=== PATIENT | female | born 1970 | race Caucasian/White ===

== ENCOUNTER 2021-12-13 19:20 | Emergency (ER) | payer OTHER, MEDICAID ==
[~2021-12-13] VITALS: Ht 165.1 cm; Wt 68.0 kg
[2021-12-13 19:21] VITALS: BP 170/100
--- NOTE | 2021-12-13 19:46 | NUR ---
Dr. Nathan at [facility] to exam patient,.
[2021-12-13 19:58] LABS: BASOPHILS # (AUTO) 0.1 K/uL (0.00-0.22); BASOPHILS % (AUTO) 0.6 % (0.0-2.0); HEMATOCRIT 37.7 % (36-48); LYMPHOCYTES % (AUTO) 9.4 % (20.5-51.1); MEAN CORPUSCULAR HEMOGLOBIN 26 pg (27-31); MEAN CORPUSCULAR HGB CONC 32 g/dL (33-37); MEAN CORPUSCULAR VOLUME 81.5 fL (80-94); MONOCYTES # (AUTO) 0.8 K/uL (0.8-1.0); MONOCYTES % (AUTO) 7.4 % (1.7-9.3); NEUTROPHILS # (AUTO) 9.2 K/uL (1.8-7.7); NEUTROPHILS % (AUTO) 82.6 % (42.2-75.2); PLATELET COUNT (AUTO) 257 K/uL (140-450); RED BLOOD CELL COUNT(AUTO) 4.62 MIL/uL (4.20-5.40); RED CELL DISTRIBUTION WIDTH 16.1 % (11.6-13.7); WHITE BLOOD COUNT (AUTO) 11.1 K/uL (4.8-10.8)
[2021-12-13 20:22] LABS: ALBUMIN 3.9 g/dL (3.4-5.0); ASPARTATE AMINOTRANSFERASE 36 U/L (15-37); CARBON DIOXIDE 21.9 mmol/L (21-32); CHLORIDE 102 mmol/L (98-107); GFR ARICAN-AMERICAN 75 mL/min (>90); GLUCOSE 116 mg/dL (74-106); SODIUM SERUM 138 mmol/L (136-145); TOTAL BILIRUBIN 0.6 mg/dL (0.0-1.0); UREA NITROGEN, BLOOD 12 mg/dL (7-18)
[2021-12-13 20:29] LABS: ACETAMINOPHEN < 0.5 ug/ml (10-30); POTASSIUM 2.9 mmol/L (3.5-5.1)
--- NOTE | 2021-12-13 20:29 | NUR ---
critical result received from lab Potassium 2.9
--- NOTE | 2021-12-13 20:32 | NUR ---
ed informed of critical result.
[2021-12-13] MEDS ORDERED: POTASSIUM CHLORIDE 10 MEQ TABER PO ONE (20:55)
--- NOTE | 2021-12-13 21:30 | NUR ---
Assumed patient care, from [facility] to room 7. Received reprot from paramedics, patient on 5150 hold for DTO. On assesment patient is hyperverbal, poor hygiene, fecal matter noted on her pants. Patient walked to rest room, cleaned and gowned up. Instructed to save urine specimen for ua and utox. Urine HCg done with negative result. Patient noted to be having abrasions on the right finger and left shoulder.
--- NOTE | 2021-12-13 21:40 | NUR ---
Dr. Raphael psychiatrist contact center director with patient on tele monitor, pt assesed and decided to keep 5150 hold.
--- NOTE | 2021-12-13 21:45 | NUR ---
ATTEMPT TO COMPLETE AN EKG. PT REQUESTED FOR A FEMALE STAFF MEMBER. PRIMARY NURSE MADE AWARE.
[2021-12-13] MEDS ORDERED: HALOPERIDOL 5 MG TAB PO SCH (22:00)
[2021-12-13 23:20] LABS: BARBITURATE, URINE NEGATIVE ng/ml (NEG <=200); BENZODIAZEPINE, URINE NEGATIVE ng/mL (NEG <=200); CANNABINOID, URINE POSITIVE ng/mL (NEG <=50); COCAINE, URINE NEGATIVE ng/mL (NEG <=300); OPIATE, URINE NEGATIVE ng/mL (NEG <=2000); PHENCYCLIDINE SCREEN,URINE NEGATIVE ng/mL (NEG <=25)
[2021-12-13] MEDS ORDERED: BACITRACIN OINT 500 UNITS/GM PKT TP ONE ×2 (23:26→23:30)
--- NOTE | 2021-12-14 | NUR ---
during inventory, noted tazer, screw bulk truck driver and kitchen knives inside the pt's purse. Knives and tazer taken out of patient's purse and trashed. Pt requesting to keep the screw bulk truck driver inside her purse, purse handed to security.
--- NOTE | 2021-12-14 | NUR ---
Patient awake at this time, snacks served. Encouraged sleep, vital signs checked and stable.
--- NOTE | 2021-12-14 01:17 | NUR ---
inventory of belongings done, with Clint HUERTA as the witness. All items sent to security for safe keeping.
--- NOTE | 2021-12-14 02:30 | NUR ---
Patient pacing, talking to herself, requesting for her black phone to be thrown in the trash, Dr. Finch called to bedside for possible medication to pacify patient's restlessness.
--- NOTE | 2021-12-14 02:48 | NUR ---
patient awake, refused to take her haldol PO medication. RN inline of sight.
--- NOTE | 2021-12-14 06:00 | NUR ---
Patient now asleep, RN in line of sight. Awaiting for urine sample for urinalysis.
--- NOTE | 2021-12-14 07:28 | NUR ---
hand-off to Nicole MICHAELS for continuity of care.
--- NOTE | 2021-12-14 07:28 | NUR ---
REPORT RECEIVED FROM BRANDO BARNES FOR TRANSFER OF CARE
--- NOTE | 2021-12-14 07:40 | NUR ---
Patient now asleep, RN in line of sight. NAD NOTED. EQUAL CHEST RISE AND FALL NOTED. WILL CONTINUE TO MONITOR
--- NOTE | 2021-12-14 08:40 | NUR ---
PT RAN TO RESTROOM AND LOCKED DOOR. INFORMED PATIENT DOOR CANNOT BE LOCKED. PT PHYSICALLY ATTACKED MYSELF AND RAN TO HER ROOM POOPING ALL OF THE FLOOR. PT IN ROOM 7 YELLING "GET ME OUT OF HERE." PATIENT BIT AND ATTACKED CHARGE NURSE. PT RESTRAINED TO FLOOR AT THIS TIME FOR SAFETY. PATIENT CONTINUES TO BECOME AGGRESSIVE AND ATTACK STAFF. AIDEN NOLASCO CALLED. PT PLACED INTO BED AND MEDICATED. PT IS SPITTING AT STAFF. PT MOVED TO BED 6 AND IN LINE FOR RN
[2021-12-14] MEDS ORDERED: diphenhydrAMINE 50 MG/ML VIAL ONE (08:52)
[2021-12-14] MEDS ORDERED: HALOPERIDOL IM 5 MG/ML VIAL ONE (08:52)
[2021-12-14] MEDS ORDERED: LORazepam 2 MG/ML VIAL ONE (08:53)
--- NOTE | 2021-12-14 09:07 | NUR ---
PT MOVED FROM FROM BED 7 TO BED 6
--- NOTE | 2021-12-14 10:05 | NUR ---
PT IN BED 6, VISIBLE EQUAL RISE AND FALL OF CHEST, VSS, WILL CONTINUE TO MONITOR.
[2021-12-14] MEDS ORDERED: diphenhydrAMINE 50 MG/ML VIAL IM ONE (11:20)
[2021-12-14] MEDS ORDERED: HALOPERIDOL IM 5 MG/ML VIAL IM ONE ×2 (11:20→12:05)
[2021-12-14] MEDS ORDERED: LORazepam 2 MG/ML VIAL IM ONE (11:20)
--- NOTE | 2021-12-14 11:24 | NUR ---
Packet faxed to: [facility]
--- NOTE | 2021-12-14 11:58 | NUR ---
PT ACTIVELY TRYING TO GET OUT OF BED AT THIS TIME. ER MD MADE AWARE
[2021-12-14] MEDS ORDERED: diphenhydrAMINE 50 MG/ML VIAL IVP ONE (12:00)
[2021-12-14] MEDS ORDERED: LORazepam 2 MG/ML VIAL IVP ONE (12:00)
--- NOTE | 2021-12-14 12:34 | NUR ---
RACH FROM [facility] CALLED AND INFORMED ONLY RECIEVED FIRST TWO PAGES OF PACKET. REQUESTED FOR PACKET TO BE RE-FAXED
--- NOTE | 2021-12-14 12:42 | NUR ---
SPOKE WITH ELIAN FROM [facility] AND REQUESTED FOR PACKET TO BE RE-FAXED TO [facility]
--- NOTE | 2021-12-14 13:10 | NUR ---
Nicole alston from [facility]. Juana from [facility] received a partial of the intake. Information was refaxed for review for placement.
--- NOTE | 2021-12-14 13:40 | NUR ---
SPOKE WITH JUANITA FROM [facility] AND PROVIDED INFORMATION ON PATIENT. WAS INFORMED SHOULD RECEIVE CALL BACK IN ABOUT 5-10 MINUTE ON IF PATIENT WILL RECIEVE BED
--- NOTE | 2021-12-14 14:17 | NUR ---
SPOKE WITH WANDA FROM [facility] AND PROVIDED PATIENT UPDATE. WAS INFORMED WILL RECEIVE CALL BACK ABOUT PATIENT PLACEMENT
--- NOTE | 2021-12-14 14:29 | NUR ---
SPOKE WITH JUANITA FROM [facility] AND WAS INFORMED THEY WILL ACCEPT THE PATIENT FOR HIGHER LEVEL OF CARE. PATIENT WILL BE ACCEPTED UNDER DR. CARPENTER. WAS ASKED IF TRANSPORATION WOULD BE SET UP FOR 4447
--- NOTE | 2021-12-14 14:32 | NUR ---
CALLED [facility] AND INFORMED FOUND PLACEMENT FOR PATIENT
--- NOTE | 2021-12-14 15:15 | NUR ---
BLOOD DRAWN FOR LAB
[2021-12-14 15:59] LABS: ALBUMIN 3.5 g/dL (3.4-5.0); ANION GAP 13.7 (8-16); CARBON DIOXIDE 24.4 mmol/L (21-32); CREATININE 0.8 mg/dL (0.6-1.3); POTASSIUM 3.1 mmol/L (3.5-5.1); TOTAL BILIRUBIN 0.6 mg/dL (0.0-1.0)
--- NOTE | 2021-12-14 16:48 | NUR ---
Patient to be transferred to [facility]. Is being transferred due to HIGHER LEVEL OF CARE. Receiving facility has accepting physician and available space. ER physician has signed transfer form. Patient or responsible alliance party has agreed to transfer and signed form. Patient belongings inventoried and will be sent with patient. Copy of nursing notes, lab reports, EKG, Physicians Orders and X-rays to be sent with patient. Report called to BRANDO PEREZ at receiving facility. [facility] ambulance service has been called for transfer. ETA is 1715.
--- NOTE | 2021-12-14 17:05 | NUR ---
[facility] AT PATIENT BEDSIDE
[2021-12-14 17:13] VITALS: BP 151/96
--- NOTE | 2021-12-14 17:14 | NUR ---
PATIENT TAKEN TO [facility]IA [facility] BY PATRICIA
[2021-12-15 08:08] LABS: HEPATITIS B SURFACE ANTIGEN Negative (Negative)
== END 2021-12-14 17:13 ==
LOC: MED 19:20
DX: F29 Unspecified psychosis not due to a substance or known physiological condition (principal); R41.82 Altered mental status, unspecified; R00.0 Tachycardia, unspecified; F12.10 Cannabis abuse, uncomplicated; Z20.822 Contact with and (suspected) exposure to COVID-19
CPT/HCPCS: 36415; 80053; 80305; 81025; 85025; 86592; 86702; 86803; 87340; 87426; 93005; 96372; 96374; 96375; 99285; G0480; G0482; J1200; J1630; J2060; U0003